=== PATIENT | female | born 2000 | race Caucasian/White ===

== ENCOUNTER 2024-07-01 13:49 | Emergency (ER) | payer OTHER, SELFPAY ==
[2024-07-01 14:02] VITALS: BP 111/70; PULSE 91; RESP 18; TEMP 36.7; O2SAT 99; BMI 31.0
--- NOTE | 2024-07-01 14:02 | ED_ITS ---
HPI - General Adult General Chief complaint: OB Stated complaint: 33 wks preg vomiting not feeling movement lighthea Time Seen by Provider: 07/01/24 16:57 Source: patient Mode of arrival: ambulatory Limitations: no limitations History of Present Illness ED Provider: HPI narrative: Patient's said 3 weeks been nauseated and vomiting for last 3 days did not drink or eat much today patient did not feel her fetus moving as supposed to hence she came to the ER no fever no chills no urinary symptoms Related Data Previous Rx's ?Medication ?Instructions ?Recorded nitrofurantoin 100 mg PO BID #20 caps 07/01/24 monohydrate/macrocrystals 100 mg capsule (Macrobid) ondansetron 4 mg disintegrating 4 mg PO Q6-8H PRN nausea and 07/01/24 tablet vomiting #7 tabs Allergies Allergy/AdvReac Type Severity Reaction Status Date / Time No Known Allergies Allergy Verified 07/01/24 14:04 [No Known Allergies*] Review of Systems 2 Review of Systems: Yes all other systems are reviewed and are negative PMFSH Social History Social History Smoked in Last 30 Days: No Use of substances other than those prescribed or required for medical reasons: Yes Substance Use Type: Marijuana Substance Use Frequency: Daily Advance Directives: No Advance Directives Information Provided: No Do you have a plan to hurt others: No Plan Patient : Yes (33 weeks) Physical Exam ED Vital Signs: Vital Signs - 24 hr 07/01/24 14:02 07/01/24 16:53 07/01/24 17:27 Temperature 98.1 F 97.8 F 99.1 F Pulse Rate 91 82 85 Respiratory Rate 18 20 16 Blood Pressure 111/70 106/72 114/74 Pulse Oximetry 99 100 100 Oxygen Delivery Method Room Air Room Air Room Air 07/01/24 19:03 07/01/24 19:45 Temperature 99.3 F 99.3 F Pulse Rate 83 83 Respiratory Rate 18 18 Blood Pressure 114/74 114/74 Pulse Oximetry 98 98 Oxygen Delivery Method Room Air Room Air BMI result Body Mass Index 31.0 Appearance: Alert. Oriented X3. No acute distress. ENT: Pharynx normal. Oral Mucosa moist Neck: Normal inspection. Neck supple. CVS: Normal heart rate and rhythm. Pulses normal. Respiratory: No respiratory distress. Equal air entry bilateral, Abdomen: Soft and nontender. Bowel sounds are present, gravid uterus no CVA tenderness heart tone 135 beats per minute Skin: Skin warm and dry. Normal skin color. Normal skin turgor. Extremities: No lower extremity edema. No calf tenderness Neuro: Oriented X 3. Course Course Course Narrative: RME, this is a rapid medical exam performed by Fermin Jaramillo please refer to primary provider for complete H&P- 23-year-old female who is presents for evaluation of decreased movement. She reports that she was able to feel her baby moving yesterday but with decreased movement. She reports that she has not felt the baby moving at all today. She endorses mild lower abdominal cramping but denies any vaginal bleeding. Plan for labs, urinalysis and heart tones. Sees OB at [facility] Medications Administered Discontinued Medications Generic Name Dose Route Start Last Admin Trade Name Freq PRN Reason Stop Dose Admin Ceftriaxone Sodium 1 gm 07/01/24 17:28 07/01/24 17:41 Ceftriaxone Sodium 1 Gm Vial IVPUSH 07/01/24 17:29 1 gm ONCE ONE Administration Sodium Chloride 1,000 mls @ 999 mls/hr 07/01/24 17:27 07/01/24 17:34 Ns IV 07/01/24 18:27 999 mls/hr .Q1H1M ONE Administration Ondansetron HCl 4 mg 07/01/24 17:27 07/01/24 17:41 Ondansetron Hcl 4 Mg/2 Ml Vial IVPUSH 07/01/24 17:28 4 mg ONCE ONE Administration Medical Decision Making Medical Decision Making [facility] Narrative: Bedside ultrasound was done showed heartbeats 135 beats per minute and was moving patient has received IV fluids and p.o. fluids and patient noticed the fetus is moving more active patient's symptoms likely from dehydration also patient has UTI prescribe Macrobid Lab Data [facility] Lab Attestation statement: I reviewed the patient's lab results. 07/01/24 14:27 07/01/24 14:27 Labs: Lab Results 07/01/24 07/01/24 Range/Units 14:27 17:36 WBC 7.8 (4.8-10.8) X10*3/uL RBC 4.16 L (4.20-5.50) X10*6/uL Hgb 11.4 L (12.0-16.0) g/dl Hct 32.9 L (37.0-47.0) % MCV 79.1 L (80.0-98.0) fL MCH 27.4 (27.0-33.0) pg MCHC 34.7 (31.0-35.0) g/dl RDW 12.6 (11.0-16.0) % Plt Count 186 (160-400) X10*3/uL MPV 12.5 H (9.4-12.3) fL Immature Gran % (Auto) 0.3 (0.0-0.4) % Neut % (Auto) 79.3 H (45-73) % Lymph % (Auto) 11.4 L (20-40) % [place] % (Auto) 7.9 (2-11) % Eos % (Auto) 1.0 (0-4) % Baso % (Auto) 0.1 (0-2) % Lymph # (Auto) 0.9 L (1.2-4.9) X10*3/uL [place] # (Auto) 0.6 (0.1-1.2) X10*3/uL Eos # (Auto) 0.1 (0.0-0.4) X10*3/uL Baso # (Auto) 0.0 (0.0-0.2) X10*3/uL Abs Immat Gran (auto) 0.02 (0.00-0.03) X10*3/uL Absolute Neuts (auto) 6.2 (2.0-8.3) x10*3/uL Absolute Nucleated RBC 0.000 (0.0-0.012) X10*3/uL Nucleated RBC % (auto) 0.0 (0.0-0.2) /100WBC Sodium 137 (135-145) mmol/L Potassium 3.7 (3.3-5.1) mmol/L Chloride 113 H (96-108) mmol/L Carbon Dioxide 16 L (22-29) mmol/L Anion Gap 12 (12-20) BUN < 3 L (9-16) mg/dL Creatinine 0.54 (0.5-1.4) mg/dL Estim Creat Clear Calc 184.8 Estimated GFR > 60 Random Glucose 78 (60-115) mg/dL Calcium 8.5 (8.4-10.2) mg/dL Total Bilirubin 0.5 (0.0-1.0) mg/dL AST 17 (5-31) U/L ALT < 6 (0-31) U/L Alkaline Phosphatase 212 H (39-117) U/L Total Protein 6.6 (6.5-8.0) g/dL Albumin 3.2 L (3.5-5.0) g/dL Lipase 17 (8-78) U/L Urine Color Dark Yellow Urine Appearance Cloudy Urine pH 7.0 (5.0-9.0) Ur Specific [place] 1.015 (1.005-1.025) Urine Protein Trace (Neg-Trace) mg/dL Urine Glucose (UA) Negative (Negative) mg/dL Urine Ketones >=160 (Negative) mg/dL Urine Blood Negative (Negative) Urine Nitrite Negative (Negative) Ur Leukocyte Esterase Large (3+) H (Negative) Urine RBC 0-2 (0-2) /HPF Urine WBC >50 H (0-5) /HPF Ur Squamous Epith Cells >20 (0-2) /HPF Urine Bacteria 4+ (None Seen) Hyaline Casts 0-2 (0-2) /LPF Influenza Type A (PCR) NEGATIVE (Negative) Influenza Type B (PCR) NEGATIVE (Negative) RSV RNA Qual (PCR) NEGATIVE (Negative) SARS-CoV-2 RNA (RT-PCR) NEGATIVE (Negative) Discharge Plan Discharge Clinical Impression: UTI (urinary tract infection), Third trimester , Acute dehydration Patient Disposition: Home, Self-Care Instructions: Dehydration (ED), Urinary Tract Infection in (ED), at 31 to 34 Weeks (ED) Additional Instructions: Drink plenty of fluids Medicine for nausea as prescribed Antibiotic for infection in the urine Follow with your stenographer secretary Prescriptions: New ondansetron 4 mg tablet,disintegrating 4 mg PO Q6-8H PRN (Reason: nausea and vomiting) Qty: 7 0RF nitrofurantoin monohyd/m-cryst [Macrobid] 100 mg capsule 100 mg PO BID Qty: 20 0RF Rx Instructions: must administer with a meal/food Interventions: ED Discharge Assessment Last Done: 07/01/24 19:45 Discharge Date/Time: 07/01/24 19:45 Print Language: Sen[place]e
[2024-07-01 14:36] LABS: Basophils Percent Auto 0.1 % (0-2); Eosinophils Absolute Auto 0.1 X10*3/uL (0.0-0.4); Hematocrit 32.9 % (37.0-47.0); Hemoglobin 11.4 g/dl (12.0-16.0); Imm Gran Abs Auto 0.02 X10*3/uL (0.00-0.03); Imm Gran Pct Auto 0.3 % (0.0-0.4); Lymphocytes Absolute Auto 0.9 X10*3/uL (1.2-4.9); Lymphocytes Percent Auto 11.4 % (20-40); MANUAL DIFF FLAG NO; Mean Corpuscular HGB Conc 34.7 g/dl (31.0-35.0); Mean Corpuscular Hemoglobin 27.4 pg (27.0-33.0); Mean Corpuscular Volume 79.1 fL (80.0-98.0); Mean Platelet Volume 12.5 fL (9.4-12.3); Monocytes Absolute Auto 0.6 X10*3/uL (0.1-1.2); Monocytes Percent Auto 7.9 % (2-11); Neutrophils Absolute Auto 6.2 x10*3/uL (2.0-8.3); Neutrophils Percent Auto 79.3 % (45-73); Platelet Count 186 X10*3/uL (160-400); Red Blood Count 4.16 X10*6/uL (4.20-5.50); Red Cell Distribution Width 12.6 % (11.0-16.0); White Blood Count 7.8 X10*3/uL (4.8-10.8)
[2024-07-01 14:37] LABS: Appearance Urine Cloudy; Color Urine Dark Yellow; Glucose Urine UA Negative (Negative); Leukocyte Esterase Urine Large (3+) (Negative); Nitrite Urine Negative (Negative); Specific Gravity - Urine 1.015 (1.005-1.025); UMIC TRIGGER UACC YES; Urine Blood Negative (Negative); Urine Ketones >=160 mg/dL (Negative); Urine Protein Trace mg/dL (Neg-Trace)
[2024-07-01 14:39] LABS: Bacteria Urine 4+ (None Seen); Hyaline Casts Urine 0-2 /LPF (0-2); RBC Urine 0-2 /HPF (0-2); Squamous Epithelial Cell Urine >20 /HPF (0-2); UACC Culture Trigger YES; WBC Urine >50 /HPF (0-5)
[2024-07-01 14:51] LABS: Alanine Aminotransferase < 6 U/L (0-31); Albumin Level 3.2 g/dL (3.5-5.0); Alkaline Phosphatase 212 U/L (39-117); Anion Gap 12 (12-20); Aspartate Amino Transferase 17 U/L (5-31); Bilirubin Total 0.5 mg/dL (0.0-1.0); Blood Urea Nitrogen < 3 mg/dL (9-16); Calcium 8.5 mg/dL (8.4-10.2); Carbon Dioxide 16 mmol/L (22-29); Chloride 113 mmol/L (96-108); Creatinine Clr Calc Pharmacy 184.8; Estimated Glomerular Filt Rate > 60; Glucose Random 78 mg/dL (60-115); Lipase 17 U/L (8-78); Potassium 3.7 mmol/L (3.3-5.1); Sodium 137 mmol/L (135-145); Total Protein 6.6 g/dL (6.5-8.0)
[2024-07-01 16:53] VITALS: BP 106/72; PULSE 82; RESP 20; TEMP 36.6; O2SAT 100
--- NOTE | 2024-07-01 17:20 | PC.NURSE ---
MD Marizol at bedside with ultrasound. HR = 135
[2024-07-01 17:27] VITALS: BP 114/74; PULSE 85; RESP 16; TEMP 37.3; O2SAT 100
--- NOTE | 2024-07-01 17:30 | PC.NURSE ---
20G peripheral IV inserted to pt.'s RAC. Tolerated well. Good blood return, and flushes without difficulty or discomfort per pt.
[2024-07-01] MEDS: 0.9 % Sodium Chloride 1,000 ML 999 ML IV (17:34)
[2024-07-01] MEDS: cefTRIAXone sodium 1 GM VIAL IVPUSH (17:41)
[2024-07-01] MEDS: ondansetron HCL 4 MG/2 ML VIAL IVPUSH (17:41)
--- NOTE | 2024-07-01 17:46 | PC.NURSE ---
No blood cultures ordered per Marizol SAMSON - verbally confirmed this with .
[2024-07-01 18:20] LABS: Influenza A PCR NEGATIVE (Negative); Influenza B PCR NEGATIVE (Negative); Resp Syncy Virus RNA Qual PCR NEGATIVE (Negative); SARS COV2 PCR INHOUSE NEGATIVE (Negative)
[2024-07-01 19:03] VITALS: BP 114/74; PULSE 83; RESP 18; TEMP 37.4; O2SAT 98
[2024-07-01 19:45] VITALS: BP 114/74; PULSE 83; RESP 18; TEMP 37.4; O2SAT 98
== END 2024-07-01 19:45 | disposition home or self-care (01) ==
PROVIDERS: Physician Assistant; Emergency Provider Internal Medicine
DX: O23.43 Unspecified infection of urinary tract in pregnancy, third trimester (principal); N39.0 Urinary tract infection, site not specified; O21.2 Late vomiting of pregnancy; O26.893 Other specified pregnancy related conditions, third trimester; E86.0 Dehydration; Z3A.33 33 weeks gestation of pregnancy; Z03.818 Encounter for observation for suspected exposure to other biological agents ruled out
CPT/HCPCS: 0241U; 36415; 80053; 81001; 83690; 85025; 87086; 96374; 96375; 99284; J0696; J2405